=== PATIENT | male | born 1930 | race Caucasian/White ===

== ENCOUNTER → 2016-10-01 | Outpatient (CLI) | payer OTHER, MEDICARE ==
[~2016-10-01] MED LIST: ACET-1311 PO; AMLO-110 PO; APR50 PO; ASPI81TA28 PO; ATOR-54 PO; FLNIN NAE; FLUT1INH7 INH; FURO-85 PO; IPRA1AER2 INH; ISOS-11 PO; LEVO112T2 PO; PLN5 PO; POTA10CA28 PO; VALS-10 PO; WARF5TAB7 PO; WARF5TAB90 PO; [UNRECOGNIZED DRUG - CODE] PO
--- NOTE | 2016-10-01 12:49 | DIAGNOSTIC IMAGING REPORT ---
LEFT FOOT 3 VIEWS HISTORY: M79.672 Left foot painM10.9 Acute [id number] COMPARISON: None. FINDINGS: There is no fracture or dislocation. Soft tissues are unremarkable. Mild to moderate arthritic change throughout the left foot. The Lisfranc joint is intact. No soft tissue calcifications. No erosions identified. Mild soft tissue swelling within the ankle and foot. Large plantar heel spur. 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 No acute fractures. No erosions identified. Mild soft tissue swelling within the ankle and foot. Electronically signed by: Domenic Renee M.D. 10/01/2016 12:48 PM Dictated Date/Time: 10/01/2016 12:43 PM
== END | disposition home or self-care (01) ==
LOC: C.LABBC 12:19
PROVIDERS: ATTEND Internal Medicine
DX: M10.9 Gout, unspecified (principal); M19.072 Primary osteoarthritis, left ankle and foot

== ENCOUNTER → 2016-10-19 | Outpatient (CLI) | payer OTHER, MEDICARE | END | disposition home or self-care (01) | LOC: C.LABBFT 12:30 | PROVIDERS: ATTEND Internal Medicine | DX: E03.9 Hypothyroidism, unspecified (principal) ==

== ENCOUNTER → 2016-11-04 | Outpatient (CLI) | payer OTHER, MEDICARE ==
[2016-11-04 14:05] LABS: URINE APPEARANCE CLEAR (CLEAR); URINE BILIRUBIN NEG (NEG); URINE COLOR YELLOW; URINE EPITHELIAL CELL AUTO 0-5 /lpf (0-5); URINE NITRITE NEG (NEG); UROBILINOGEN NEG (NEG)
[2016-11-04 14:10] LABS: MANUAL MICROSCOPIC REQUIRED? NO; REVIEW REQ? NO
== END | disposition home or self-care (01) ==
LOC: C.LABBC 11:38
PROVIDERS: ATTEND Internal Medicine
DX: R32 Unspecified urinary incontinence (principal); I08.0 Rheumatic disorders of both mitral and aortic valves; Z79.01 Long term (current) use of anticoagulants

== ENCOUNTER → 2017-03-10 | Outpatient (CLI) | payer OTHER, MEDICARE ==
[2017-03-10 17:35] LABS: HEMATOCRIT 41.3 % (42-52); MEAN CELL VOLUME 91.4 fL (80-100); MEAN CORPUSCULAR HGB CONC 33.9 g/dl (32-36); MEAN PLATELET VOLUME 10.5 fL (7.4-10.4); PLATELET COUNT 284 K/uL (130-400); RED BLOOD COUNT 4.52 M/uL (4.7-6.1); WHITE BLOOD COUNT 8.28 K/uL (4.8-10.8)
[2017-03-10 17:46] LABS: ALT/SGPT 21 U/L (12-78); AST/SGOT 19 U/L (15-37); BLOOD UREA NITROGEN 18 mg/dl (7-18); BUN/CREATININE RATIO 11.7 (10-20); CALCIUM 8.7 mg/dl (8.5-10.1); CARBON DIOXIDE 27 mmol/L (21-32); CHLORIDE 105 mmol/L (98-107); GLUCOSE 139 mg/dl (70-99); POTASSIUM 3.2 mmol/L (3.5-5.1); SODIUM 140 mmol/L (136-145)
== END | disposition home or self-care (01) ==
LOC: C.LABBFT 12:41
PROVIDERS: ATTEND Internal Medicine Cardiovascular Disease
DX: I10 Essential (primary) hypertension (principal); I25.10 Atherosclerotic heart disease of native coronary artery without angina pectoris; I50.32 Chronic diastolic (congestive) heart failure; I71.2 Thoracic aortic aneurysm, without rupture; I48.2 Chronic atrial fibrillation; Z79.01 Long term (current) use of anticoagulants; I35.0 Nonrheumatic aortic (valve) stenosis; I08.0 Rheumatic disorders of both mitral and aortic valves; Z51.81 Encounter for therapeutic drug level monitoring

== ENCOUNTER → 2017-03-15 | Outpatient (CLI) | payer OTHER, MEDICARE ==
--- NOTE | 2017-04-02 12:13 | CODING QUERY NO DIAGNOSIS ---
TREATMENT RENDERED WITHOUT A DIAGNOSIS To promote full compliance with coding requirements relating to patient care, physician participation is requested in all cases of mobile home servicer uncertainty. Please assist us with providing a diagnosis/symptom for the test(s) below: A diagnosis/symptom was not documented on your Order. A valid diagnosis/symptom is required to bill all insurances. Please remember that we are unable to code a diagnosis of rule out, probable, possible, questionable, or suspected. Tests that require a diagnosis: * SHAVE BIOPSY LEFT EAR DIAGNOSIS: Provider Signature: Date: Thank you Teresa Crescent [facility] Information Management Once completed, please kindly fax back to [phone] For questions please call [phone]
== END | disposition home or self-care (01) ==
LOC: C.LABSPEC 16:17
PROVIDERS: ATTEND Dermatology
DX: Z01.89 Encounter for other specified special examinations (principal)

== ENCOUNTER → 2017-03-24 | Outpatient (CLI) | payer OTHER, MEDICARE ==
[2017-03-24 17:49] LABS: BLOOD UREA NITROGEN 19 mg/dl (7-18); BUN/CREATININE RATIO 14.6 (10-20); CALCIUM 8.5 mg/dl (8.5-10.1); CARBON DIOXIDE 29 mmol/L (21-32); CHLORIDE 105 mmol/L (98-107); GLUCOSE 118 mg/dl (70-99); POTASSIUM 3.4 mmol/L (3.5-5.1); SODIUM 139 mmol/L (136-145)
== END | disposition home or self-care (01) ==
LOC: C.LABBFT 17:36
PROVIDERS: ATTEND Physician Assistant
DX: R63.5 Abnormal weight gain (principal); I08.0 Rheumatic disorders of both mitral and aortic valves; Z79.01 Long term (current) use of anticoagulants; Z51.81 Encounter for therapeutic drug level monitoring

== ENCOUNTER 2017-04-01 22:36 | Inpatient (IN) | payer OTHER, MEDICARE ==
[~2017-04-01] VITALS: Ht 165.1 cm; Wt 86.3 kg
[~2017-04-01 22:36] MED LIST changes: -AMLO-110 PO; -FURO-85 PO; -POTA10CA28 PO
[2017-04-01] MEDS ORDERED: FURO-85 PO (23:40)
[2017-04-01] MEDS ORDERED: AMLO-110 PO (23:42)
[2017-04-01 23:43] LABS: BASO % 0.6 %; BASO ABS # 0.05 K/uL (0-0.2); COMPLETE YES; EOS % 2.2 %; HEMATOCRIT 38.5 % (42-52); IG% 0.1 %; LYMPH % 14.8 %; LYMPH ABS # 1.27 K/uL (1.2-3.4); MEAN CELL VOLUME 92.3 fL (80-100); MEAN CORPUSCULAR HEMOGLOBIN 30.9 pg (25-34); MEAN CORPUSCULAR HGB CONC 33.5 g/dl (32-36); MEAN PLATELET VOLUME 9.7 fL (7.4-10.4); MONO % 9.2 %; NEUT % 73.1 %; PLATELET COUNT 298 K/uL (130-400); RED BLOOD COUNT 4.17 M/uL (4.7-6.1); WHITE BLOOD COUNT 8.58 K/uL (4.8-10.8)
[2017-04-01] MEDS ORDERED: POTA10CA28 PO (23:43)
[2017-04-01] MEDS ORDERED: IPRA1AER2 INH (23:44)
[2017-04-01 23:53] LABS: POINT OF CARE TROPONIN I 0.1 ng/ml (0-0.045)
[2017-04-02] VITALS (11 sets, daily range): BP systolic 99–174; BP diastolic 60–83; PULSE 55–87; TEMP 36.5–36.7; O2SAT 92–99; Ht 165.1 cm; Wt 86.3 kg
[2017-04-02 00:08] LABS: BUN/CREATININE RATIO 16.2 (10-20); CALCIUM 8.6 mg/dl (8.5-10.1); CREATININE 1.4 mg/dl (0.60-1.40); POTASSIUM 3.5 mmol/L (3.5-5.1)
[2017-04-02 00:10] LABS: ALB/GLOB RATIO 0.8 (0.9-2)
[2017-04-02] MEDS ORDERED: ASPIRIN 324 MG CHEW PO STA (00:11)
--- NOTE | 2017-04-02 00:39 | EMERGENCY ROOM VISIT NOTE ---
History Report prepared by Hayde: Wicho Meraz Under the Supervision of: Dr. Caden Howard D.O. First contact with patient: 22:55 Chief Complaint: SHORTNESS OF BREATH Stated Complaint: SOB AFTER WALKING SHORT DISTANCE Nursing Triage Summary: Family reports increase in SOB today. Pt was walking a short distance and needed to rest. Pt denies symptoms. hx alzheimers. History of Present Illness The patient is a 86 year old male who presents to the Emergency Room with complaints of an episode of shortness of breath occurring today. He has a history of Alzheimer's. The patient currently denies any respiratory problems. Per daughter, the patient appeared to become short of breath with walking a very short distance today. She states that the patient does not normally have to stop and rest with walking. She notes that the patient was recently placed on temporary additional medication for fluid overload last week after he was found to have gained 11 pounds in a little over a week. The patient's daughter states that the patient has been eating less than normal. Source of History: patient, family (daughter) Onset: Today Symptom Intensity: currently none Quality: other (shortness of breath) Timing: other (episode) Modifying Factors (Worsening): other (walking) Review of Systems See HPI for pertinent positives and negatives. A total of ten systems were reviewed and were otherwise negative. Past Medical & Surgical Medical Problems: (1) Aortic aneurysm (2) Arthritis (3) Asthma (4) Benign hypertension (5) CABG x3 (6) CHF (congestive heart failure) (7) COPD exacerbation (8) Coronary artery disease (9) Hyponatremia (10) Kidney disease (11) Kidney stone Family History FHx: heart disease Hypertension Kidney disease Kidney stones Social History Smoking Status: Never Smoker Alcohol Use: none Drug Use: none Marital Status: Housing Status: lives with significant other Occupation Status: retired Current/Historical Medications Scheduled Amlodipine (Norvasc), 5 MG PO DAILY Aspirin (Aspirin Ec), 81 MG PO DAILY Atorvastatin (Lipitor), 20 MG PO HS Donepezil Hydrochloride (Donepezil Hcl), 10 MG PO DAILY Fluticasone Furoate-Vilanterol (Breo Ellipta 200-25 Mcg/INH), INH DAILY Fluticasone Propionate (Fluticasone Propionate), 1 SPRAY KASSANDRA BID Furosemide (Lasix), 20 MG PO DAILY Hydralazine HCl (Hydralazine HCl), 75 MG PO TID Ipratropium-Albuterol (Combivent Respimat), 2 PUFFS INH QID Isosorbide Mononitrate (Isosorbide Mononitrate ER), 30 MG PO DAILY Levothyroxine Sodium (Synthroid), 112 MCG PO DAILY Potassium Chloride (Micro-K Ext Rel), 20 MEQ PO DAILY Valsartan/Hctz (Diovan Hct 320MG/12.5MG), 1 TAB PO DAILY Warfarin Sod (Jantoven), 5 MG PO daily except wednesday Warfarin Sodium (Coumadin), 2.5 MG PO fridays Scheduled PRN Acetaminophen (Tylenol), 487.5 MG PO Q 6-8 HRS PRN for PRN Allergies Coded Allergies: Iodinated Diagnostic Agents (Verified Allergy, Intermediate, Swelling, ) Physical Exam Vital Signs Date Time Temp Pulse Resp B/P (MAP) Pulse Ox O2 Delivery O2 Flow Rate FiO2 04/02/17 00:33 55 22 192/97 96 Room Air 04/01/17 23:37 62 20 183/86 94 Room Air 04/01/17 23:29 64 04/01/17 23:29 97 Room Air 04/01/17 22:52 94 Room Air 04/01/17 22:47 36.5 71 18 228/83 94 Room Air Physical Exam GENERAL: Awake, alert, well-appearing, in no distress HENT: Normocephalic, atraumatic. Oropharynx unremarkable. EYES: Normal conjunctiva. Sclera non-icteric. NECK: Supple. No nuchal rigidity. FROM. No JVD. RESPIRATORY: Clear to auscultation. CARDIAC: Regular rate, normal rhythm. Extremities warm and well perfused. Pulses equal. ABDOMEN: Soft, non-distended. No tenderness to palpation. No rebound or guarding. No masses. RECTAL: Deferred. MUSCULOSKELETAL: Chest examination reveals no tenderness. The back is symmetrical on inspection without obvious abnormality. There is no CVA tenderness to palpation. No joint edema. LOWER EXTREMITIES: Calves are equal size bilaterally and non-tender. No edema. No discoloration. NEURO: Normal sensorium. No sensory or motor deficits noted. SKIN: No rash or jaundice noted. Medical Decision & Procedures ER Provider Diagnostic Interpretation: One View Chest X-ray interpreted by me: Cardiomegaly. Sternal wires. No obvious infiltrate. Laboratory Results 04/01/17 23:30 Red Blood Count 4.17, Mean Corpuscular Volume 92.3, Mean Corpuscular Hemoglobin 30.9, Mean Corpuscular Hemoglobin Concent 33.5, Mean Platelet Volume 9.7, Neutrophils (%) (Auto) 73.1, Lymphocytes (%) (Auto) 14.8, Monocytes (%) (Auto) 9.2, Eosinophils (%) (Auto) 2.2, Basophils (%) (Auto) 0.6, Neutrophils # (Auto) 6.27, Lymphocytes # (Auto) 1.27, Monocytes # (Auto) 0.79, Eosinophils # (Auto) 0.19, Basophils # (Auto) 0.05 04/01/17 23:30 Test 04/01/17 23:30 04/01/17 23:34 White Blood Count 8.58 K/uL (4.8-10.8) Red Blood Count 4.17 M/uL (4.7-6.1) Hemoglobin 12.9 g/dL (14.0-18.0) Hematocrit 38.5 % (42-52) Mean Corpuscular Volume 92.3 fL (80-100) Mean Corpuscular Hemoglobin 30.9 pg (25-34) Mean Corpuscular Hemoglobin Concent 33.5 g/dl (32-36) Platelet Count 298 K/uL (130-400) Mean Platelet Volume 9.7 fL (7.4-10.4) Neutrophils (%) (Auto) 73.1 % Lymphocytes (%) (Auto) 14.8 % Monocytes (%) (Auto) 9.2 % Eosinophils (%) (Auto) 2.2 % Basophils (%) (Auto) 0.6 % Neutrophils # (Auto) 6.27 K/uL (1.4-6.5) Lymphocytes # (Auto) 1.27 K/uL (1.2-3.4) Monocytes # (Auto) 0.79 K/uL (0.11-0.59) Eosinophils # (Auto) 0.19 K/uL (0-0.5) Basophils # (Auto) 0.05 K/uL (0-0.2) RDW Standard Deviation 46.8 fL (36.4-46.3) RDW Coefficient of Variation 14.0 % (11.5-14.5) Immature Granulocyte % (Auto) 0.1 % Immature Granulocyte # (Auto) 0.01 K/uL (0.00-0.02) Anion Gap 4.0 mmol/L (3-11) Est Creatinine Clear Calc Drug Dose 41.2 ml/min Estimated GFR () 52.7 Estimated GFR (Non- 45.5 BUN/Creatinine Ratio 16.2 (10-20) Calcium Level 8.6 mg/dl (8.5-10.1) Total Bilirubin 0.3 mg/dl (0.2-1) Aspartate Amino Transf (AST/SGOT) 18 U/L (15-37) Alanine Aminotransferase (ALT/SGPT) 20 U/L (12-78) Alkaline Phosphatase 68 U/L (45-117) Total Protein 7.2 gm/dl (6.4-8.2) Albumin 3.3 gm/dl (3.4-5.0) Globulin 3.9 gm/dl (2.5-4.0) Albumin/Globulin Ratio 0.8 (0.9-2) Bedside Troponin I 0.100 ng/ml (0-0.045) MH-Ykf-Y-Type Natriuretic Peptide 1604 pg/ml (0-1800) Laboratory results reviewed by me Medications Administered Medications (Trade) Dose Ordered Sig/Stevie Route Start Time Stop Time Status Last Admin Dose Admin Aspirin (Aspirin Chew) 324 mg NOW STAT PO 04/02/17 00:11 04/02/17 00:12 DC 04/02/17 00:19 324 MG ECG Indication: SOB/dyspnea Rate (beats per minute): 66 Rhythm: atrial fibrillation Findings: other (Non-specific intraventricular block. LAD. ) ED Course 2302: The patient was evaluated in room A3. A complete history and physical exam was performed. 0011: Ordered Aspirin 324 mg PO. 0020: Upon reexamination, the patient was resting. I discussed the test results and treatment plan with him. The patient will be evaluated for further management. Medical Decision Differential diagnosis: Etiologies such as infections, reactive airway disease, pneumonia, pneumothorax , COPD, CHF, cardiac ischemia, pulmonary embolism, musculoskeletal, gastrointestinal, as well as others were entertained. Resting in no distress patient had a positive troponin potentially this is an anginal equivalent. The case was discussed with the hospitalist for admission patient was given aspirin in the emergency department. Consults Time Called: 14 Consulting Physician: Dr. Mccarty -[facility] [place] Returned Call: 0020 Discussed the patient's case. The patient will be evaluated for further treatment and disposition. Impression Primary Impression: SOB (shortness of breath) Additional Impression: Elevated troponin Scribe Attestation The scribe's documentation has been prepared under my direction and personally reviewed by me in its entirety. I confirm that the note above accurately reflects all work, treatment, procedures, and medical decision making performed by me. Departure Information Dispostion Being Evaluated By Hospitalist Referrals No Doctor, Assigned (PCP) Patient Instructions [facility] Problem Qualifiers
[2017-04-02] MEDS ORDERED: HEPARIN IV LOW DOSE NO BOLUS SCH (00:49)
[2017-04-02 01:00] LABS: INR 1.5 (0.9-1.1); PARTIAL THROMBOPLASTIN RATIO 1.3; PROTHROMBIN TIME (PATIENT) 16.1 SECONDS (9.0-12.0)
[2017-04-02] MEDS ORDERED: NITROGLYCERIN 0.4 MG SL PER TAB CHARGE SL PRN (01:30)
[2017-04-02] MEDS ORDERED: ONDANSETRON INJ 2 MG/ML 2 ML VIAL IV PRN (01:30)
[2017-04-02] MEDS ORDERED: ACETAMINOPHEN 325 MG TAB PO PRN (01:30)
[2017-04-02] MEDS ORDERED: HEPARIN 25000 UNIT/500 ML D5W ONE (01:33)
[2017-04-02] MEDS ORDERED: FUROSEMIDE INJ 20 MG in SYRINGE 0 ML IV ONE (01:45)
[2017-04-02] MEDS ORDERED: FUROSEMIDE 40 MG/4 ML VIAL ONE (01:58)
[2017-04-02] MEDS ORDERED: ALBUT/IPRATROP 3MG/0.5MG NEB 3 ML VIAL ONE (01:58)
[2017-04-02] MEDS ORDERED: HEPARIN 25000 UNIT/ D5W 500 ML (PHARMACY PREPARED) IV PRN ×2 (02:45)
--- NOTE | 2017-04-02 04:49 | History and Physical ---
History & Physical Date & Time of Service: Apr 02, 2017 at 03:24 Chief Complaint: Nstemi Primary Care Physician: Arsh Brewer M.D. History of Present Illness Source: patient, family ( and daughter), clinic records, hospital records Mr. Blanco is an 86 year old male with coronary artery disease s/p CABG x3 (1997) , T2DM, HTN, permanent atrial fibrillation, diastolic CHF and CKD who presents to the ER with acute onset shortness of breath after walking 5 yards around 5: 00pm. This lasted for approximately 30 minutes. Helped with rest. He denies any chest pain however he is very stoic, likely has vascular dementia, not forthcoming with his medical illnesses/symptoms and non compliant with medication. At present the patient denies any issues problems and states that he is here just because his made him. The patient denies he is short of breath however he is using his accessory muscles and is audibly wheezing while in bed. Aug 2015 Echo LVEF 50-55%. Mild to moderate aortic stenosis. Mild mitral regurgitation. No wall motion abnormalities. Past Medical/Surgical History Medical Problems: (1) Aortic aneurysm Status: Chronic (2) Arthritis Status: Chronic (3) Asthma Status: Chronic (4) Benign hypertension Status: Chronic (5) CABG x3 Status: Resolved (6) CHF (congestive heart failure) Status: Chronic (7) Coronary artery disease Status: Chronic (8) Kidney disease Status: Chronic (9) Kidney stone Status: Resolved Family History FHx: heart disease Hypertension Kidney disease Kidney stones Social History Smoking Status: Never Smoker Smokeless Tobacco Use: No Alcohol Use: none Drug Use: none Marital Status: Housing status: lives with family Occupational Status: retired Immunizations History of Influenza Vaccine: Yes Influenza Vaccine Date: Jul 20, 2012 History of Tetanus Vaccine?: Unknown History of Pneumococcal: No History of Hepatitis B Vaccine: No Multi-Drug Resistant Organisms History of MDRO: No Allergies Coded Allergies: Iodinated Diagnostic Agents (Verified Allergy, Intermediate, Swelling, ) Home Medications Scheduled Amlodipine (Norvasc), 5 MG PO DAILY Aspirin (Aspirin Ec), 81 MG PO DAILY Atorvastatin (Lipitor), 20 MG PO HS Donepezil Hydrochloride (Donepezil Hcl), 10 MG PO DAILY Fluticasone Furoate-Vilanterol (Breo Ellipta 200-25 Mcg/INH), INH DAILY Fluticasone Propionate (Fluticasone Propionate), 1 SPRAY KASSANDRA BID Furosemide (Lasix), 20 MG PO DAILY Hydralazine HCl (Hydralazine HCl), 75 MG PO TID Ipratropium-Albuterol (Combivent Respimat), 2 PUFFS INH QID Isosorbide Mononitrate (Isosorbide Mononitrate ER), 30 MG PO DAILY Levothyroxine Sodium (Synthroid), 112 MCG PO DAILY Potassium Chloride (Micro-K Ext Rel), 20 MEQ PO DAILY Valsartan/Hctz (Diovan Hct 320MG/12.5MG), 1 TAB PO DAILY Warfarin Sod (Jantoven), 5 MG PO daily except wednesday Warfarin Sodium (Coumadin), 2.5 MG PO fridays Scheduled PRN Acetaminophen (Tylenol), 487.5 MG PO Q 6-8 HRS PRN for PRN Review of Systems Constitutional: No fever, No chills Eyes: No worsening of vision ENT: + hearing loss (chronic) Respiratory: + shortness of breath, + dyspnea on exertion, No cough, No dyspnea at rest (patient denies) Cardiovascular: No chest pain Abdomen: No pain, No nausea, No vomiting, No diarrhea, No constipation, No GI bleeding Musculoskeletal: No joint pain, No muscle pain Genitourinary - Male: No hematuria, No dysuria, No urinary frequency, No urinary urgency Hematologic / Lymphatic: No abnormal bleeding/bruising Integumentary: No rash, No itch Physical Exam Vital Signs Date Time Temp Pulse Resp B/P (MAP) Pulse Ox O2 Delivery O2 Flow Rate FiO2 04/02/17 02:57 67 24 176/80 97 04/02/17 02:51 56 04/02/17 01:50 58 28 165/79 95 Room Air 04/02/17 01:40 63 20 208/99 95 Room Air 04/02/17 00:33 55 22 192/97 96 Room Air 04/01/17 23:37 62 20 183/86 94 Room Air 04/01/17 23:29 64 04/01/17 23:29 97 Room Air 04/01/17 22:52 94 Room Air 04/01/17 22:47 36.5 71 18 228/83 94 Room Air General Appearance: WD/WN, + mild distress (wheezing and short of breath in bed at rest) Head: normocephalic, atraumatic Eyes: normal inspection, PERRL, EOMI Neck: supple, + JVD Respiratory/Chest: + respiratory distress (mild), + accessory muscle use (mild) , + crackles (bibasal fine crackles), + wheezing (expiratory wheeze throughout) Cardiovascular: + systolic murmur (loudest in ), + irregularly irregular Abdomen/GI: normal bowel sounds, non tender, soft, + distended (patient reports normal for him) Back: no CVA tenderness Extremities/Musculoskelatal: no calf tenderness, normal capillary refill, + pedal edema (trace bilaterally) 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, no motor/sensory deficits, alert, oriented x 3 Skin: normal color, warm/dry, no rash Diagnostics Laboratory Results Results Past 24 Hours Test 04/01/17 23:30 04/01/17 23:34 Range/Units White Blood Count 8.58 4.8-10.8 K/uL Red Blood Count 4.17 4.7-6.1 M/uL Hemoglobin 12.9 14.0-18.0 g/dL Hematocrit 38.5 42-52 % Mean Corpuscular Volume 92.3 80-100 fL Mean Corpuscular Hemoglobin 30.9 25-34 pg Mean Corpuscular Hemoglobin Concent 33.5 32-36 g/dl Platelet Count 298 130-400 K/uL Mean Platelet Volume 9.7 7.4-10.4 fL Neutrophils (%) (Auto) 73.1 % Lymphocytes (%) (Auto) 14.8 % Monocytes (%) (Auto) 9.2 % Eosinophils (%) (Auto) 2.2 % Basophils (%) (Auto) 0.6 % Neutrophils # (Auto) 6.27 1.4-6.5 K/uL Lymphocytes # (Auto) 1.27 1.2-3.4 K/uL Monocytes # (Auto) 0.79 0.11-0.59 K/uL Eosinophils # (Auto) 0.19 0-0.5 K/uL Basophils # (Auto) 0.05 0-0.2 K/uL RDW Standard Deviation 46.8 36.4-46.3 fL RDW Coefficient of Variation 14.0 11.5-14.5 % Immature Granulocyte % (Auto) 0.1 % Immature Granulocyte # (Auto) 0.01 0.00-0.02 K/uL Prothrombin Time 16.1 9.0-12.0 SECONDS Prothromb Time International Ratio 1.5 0.9-1.1 Activated Partial Thromboplast Time 33.8 21.0-31.0 SECONDS Partial Thromboplastin Ratio 1.3 Sodium Level 140 136-145 mmol/L Potassium Level 3.5 3.5-5.1 mmol/L Chloride Level 105 98-107 mmol/L Carbon Dioxide Level 31 21-32 mmol/L Anion Gap 4.0 3-11 mmol/L Blood Urea Nitrogen 23 7-18 mg/dl Creatinine 1.40 0.60-1.40 mg/dl Est Creatinine Clear Calc Drug Dose 41.2 ml/min Estimated GFR () 52.7 Estimated GFR (Non- 45.5 BUN/Creatinine Ratio 16.2 10-20 Random Glucose 160 70-99 mg/dl Calcium Level 8.6 8.5-10.1 mg/dl Total Bilirubin 0.3 0.2-1 mg/dl Aspartate Amino Transf (AST/SGOT) 18 15-37 U/L Alanine Aminotransferase (ALT/SGPT) 20 12-78 U/L Alkaline Phosphatase 68 45-117 U/L Total Protein 7.2 6.4-8.2 gm/dl Albumin 3.3 3.4-5.0 gm/dl Globulin 3.9 2.5-4.0 gm/dl Albumin/Globulin Ratio 0.8 0.9-2 Bedside Troponin I 0.100 0-0.045 ng/ml WG-Bby-U-Type Natriuretic Peptide 1604 0-1800 pg/ml Diagnostic Radiology SINGLE VIEW CHEST CLINICAL HISTORY: Dyspnea. FINDINGS: An AP, portable, upright chest radiograph is compared to study dated 04/22/2016. The examination is degraded by portable technique, apical positioning, and patient rotation. The patient is status post midline sternotomy. The heart is enlarged and there is atherosclerotic calcification of the thoracic aorta. The pulmonary vasculature is noncongested. Enlargement of the main pulmonary arteries suggests pulmonary artery hypertension. The lungs and pleural spaces are clear. No pneumothorax is seen. The bony thorax is grossly intact. IMPRESSION: Cardiomegaly with no acute cardiopulmonary abnormality. Electronically signed by: Hermes Fabian M.D. 04/02/2017 7:15 AM Dictated Date/Time: 04/02/2017 7:14 AM EKG Atrial fibrillation. 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 Start heparin low dose and hold warfarin in case cardiac cath is required. - Continue ASA + Plavix - not on BB secondary to Hx of bradycardia while on BB - Continue valsartan - continue atorvastatin - trend troponin - Consult cardiology Aortic stenosis and mitral regurgitation - systolic murmur on examination - declined previous intervention Atrial fibrillation - rate controlled (no rate control meds) - anticoagulated with warfarin - check PTINR and PTT as will hold warfarin until cardiology consult and place on IV heparin as above. HTN - likely due to medication non compliance therefore will not increase his medications at this time - continue valsartan/HCZT + amlodipine, give amlodipine dose now Shortness of breath with wheezing - trial of duoneb to see if this helps his wheezing - continue outpatient inhalers Attending Addendum: I have physically seen and examined this patient, have supervised the medical residents activities, and agree with the H&P as noted above with the following exceptions: NONE The patient is awake, well-developed and adequately nourished, alert and oriented 3, normocephalic and atraumatic, looks fatigued, lying in bed and in mild distress. HEENT--PERRL, EOMI, mucous membranes and oropharynx normal. Neck--supple, + JVD. No bruits. thyroid normal, trachea midline, no adenopathy. Heart--irregularly irregular. Systolic murmur. No rubs or gallops. Lungs-- coarse breath sounds and wheezes throughout, mild respiratory distress and accessory muscle use. Abdomen--normal bowel sounds and soft, nontender. Mildly tympanitic. No hernias or masses, no organomegaly. Extremities--no cyanosis, clubbing. 1+ bilateral pretibial/pedal pitting Edema. There are good distal pulses b/l. Dermatologic--normal skin turgor, normal color, warm and dry, no abnormal lymph nodes, no rash. Neurologic--cranial nerves II through XII grossly intact. Rheumatologic--normal range of motion, nontender, muscles and joints. Psychiatric--normal affect. Assessment and Plan: 1. CAD/hypertension/atrial fibrillation/aortic stenosis/mitral regurgitation/ NSTEMI with elevated troponin--The patient will be admitted to telemetry for serial cardiac enzymes, cardiac rhythm monitoring and a 2-D echocardiogram with Dopplers. Start heparin low dose per protocol. Hold warfarin. Continue aspirin and Plavix. Continue valsartan, HCTZ and amlodipine. History of bradycardia while on beta blockers. Continue atorvastatin. Consult cardiology. Level of Care Telemetry Advanced Directives Existing Advance Directive: Yes Existing Living Will: Yes Existing Power of Terrazzo Supervisor: Yes Resuscitation Status DO NOT RESUSCITATE (as per patient wishes) VTE Prophylaxis VTE Risk Assessment Done? Y/N: Yes Risk Level: Moderate Given or contraindicated: Other Anticoagulation Additional Copies To Arsh Brewer M.D. Resident Tracking Resident Involvement: Resident Care Provided Care Provided: Adult Hospital Medicine
[2017-04-02] MEDS: LEVOTHYROXINE 112 MCG TAB PO SCH (05:50)
[2017-04-02] MEDS ORDERED: PNEUMOCOCCAL POLYSACCHARIDES 25 MCG/0.5 ML VIAL/SYR IM. ONE (06:00)
[2017-04-02] MEDS ORDERED: PNEUMOCOCCAL ADMINISTRATION CHARGE ONE (06:00)
[2017-04-02] MEDS: ALBUT/IPRATROP 3MG/0.5MG NEB 3 ML VIAL INH SCH ×3 (07:09→19:05)
--- NOTE | 2017-04-02 07:16 | DIAGNOSTIC IMAGING REPORT ---
SINGLE VIEW CHEST CLINICAL HISTORY: Dyspnea. FINDINGS: An AP, portable, upright chest radiograph is compared to study dated 04/22/2016. The examination is degraded by portable technique, apical positioning, and patient rotation. The patient is status post midline sternotomy. The heart is enlarged and there is atherosclerotic calcification of the thoracic aorta. The pulmonary vasculature is noncongested. Enlargement of the main pulmonary arteries suggests pulmonary artery hypertension. The lungs and pleural spaces are clear. No pneumothorax is seen. The bony thorax is grossly intact. IMPRESSION: Cardiomegaly with no acute cardiopulmonary abnormality. Electronically signed by: Hermes Fabian M.D. 04/02/2017 7:15 AM Dictated Date/Time: 04/02/2017 7:14 AM
[2017-04-02 08:05] LABS: PARTIAL THROMBOPLASTIN RATIO 1.8
[2017-04-02 08:44] LABS: BUN/CREATININE RATIO 15.7 (10-20); CALCIUM 8.3 mg/dl (8.5-10.1); CREATININE 1.2 mg/dl (0.60-1.40); POTASSIUM 2.9 mmol/L (3.5-5.1)
[2017-04-02] MEDS: FLUTICASONE PROPIONATE NA SPR 16 GM BTL NAE SCH ×2 (08:46→21:01)
[2017-04-02] MEDS: IPRATROPIUM BROMIDE/ALBUTEROL respimat INH INH SCH ×4 (08:48→21:04)
[2017-04-02] MEDS: ISOSORBIDE MONONITRATE 30 MG TABCR PO SCH (08:49)
[2017-04-02] MEDS: AMLODIPINE BESYLATE 5 MG TAB PO SCH (08:49)
[2017-04-02] MEDS: VALSARTAN 80 MG TAB PO SCH (08:50)
[2017-04-02] MEDS: FUROSEMIDE 20 MG TAB PO SCH (08:50)
[2017-04-02] MEDS: ASPIRIN 81 MG ECTAB PO SCH (08:51)
[2017-04-02] MEDS: DONEPEZIL HCL 10 MG TAB PO SCH (08:51)
[2017-04-02] MEDS: HYDROCHLOROTHIAZIDE 25 MG TAB PO SCH (08:55)
[2017-04-02 08:59] LABS: ALB/GLOB RATIO 0.8 (0.9-2); CHOLESTEROL/HDL RATIO 4.2
[2017-04-02] MEDS ORDERED: VALSARTAN/HCTZ 320/12.5 MG TAB PO SCH (09:00)
[2017-04-02] MEDS ORDERED: POTASSIUM CHLORIDE 10 MEQ TABCR PO SCH (09:00)
[2017-04-02] MEDS ORDERED: HEPARIN IV BOLUS 3,000 UNIT in SYRINGE 0 ML IV SCH (09:00)
[2017-04-02 09:28] LABS: MEAN CELL VOLUME 91.5 fL (80-100); MEAN CORPUSCULAR HEMOGLOBIN 31.7 pg (25-34); MEAN CORPUSCULAR HGB CONC 34.6 g/dl (32-36); PLATELET COUNT 312 K/uL (130-400); RED BLOOD COUNT 4.26 M/uL (4.7-6.1); WHITE BLOOD COUNT 8.48 K/uL (4.8-10.8)
--- NOTE | 2017-04-02 10:47 | CARDIOLOGY CONSULTATION ---
DATE OF CONSULTATION: 04/02/2017 REFERRING PHYSICIAN: Joshua Broussard MD CONSULTING PHYSICIAN: Alen Beverly Jr, MD PRIMARY PHYSICIAN: Arsh Brewer MD ATTENDING PHYSICIAN: Alexandro Mccarty MD PRIMARY ARTS EDUCATION TEACHER: Lopez Macdonald MD HISTORY OF PRESENT ILLNESS: The patient is an 86-year-old white male with a history of coronary artery disease (status post CABG x3 in 1997), aortic stenosis, chronic atrial fibrillation, chronic diastolic heart failure, chronic kidney disease, dementia, type 2 diabetes mellitus, hypertension, dyslipidemia, and reactive airway disease. He also has a history of aortic root and ascending aortic dilatation. The patient and his family have previously refused any further workup, evaluation, or treatment of his aortic valvular or aortic disease. His last cardiac imaging study apparently was in 2014. This is 08/09/2015. The echo revealed LV ejection fraction of 50%-55%, mild to moderate aortic stenosis, mild mitral regurgitation, borderline left ventricular hypertrophy. The calculated aortic valve area at that time was 1.1 square cm. The mean gradient across the aortic valve at that time was 14 mmHg. The dimensionless aortic valve index calculated based on velocities reported on the echo was 0.29. The patient was recently seen by Dr. Macdonald as an outpatient on March 25. At that time, his stated that sometimes her appear to be "huffing and puffing." This was with exertion or bending over. At other times, he can walk prolonged distance such as the length of the mall without any obvious dyspnea. He had been noted on March 22 to have 2+ lower extremity pitting edema on a followup with Dr. Brewer. His furosemide dose was increased to 40 mg for three days. His usual dose is 20 mg daily. When he was seen in followup by Dr. Macdonald on March 25, it was reported that he had 1+ pretibial edema. The patient's had stated that her gained approximately 11 pounds in the few weeks prior to the March 25 visit. Despite his weight gain, she reported that his appetite has been decreased. She reports that he has decreased oral intake. She stated this to me today. The patient has difficulty in swallowing solids. It is easier for him to swallow soft foods. There is questionable compliance with medications. The patient's daughter, who is in attendance with him today (as well as his ), states that frequently, there are pills on the floor and in his clothing. The patient is also not compliant with a low sodium diet. He and his frequently eat at local restaurants. Yesterday afternoon, the patient and his had a meal at [employer]. They then drove to a local [employer]. The patient's reports that after he walked approximately 15 feet, he had diaphoresis over his upper lip. He appeared weak. He appeared dyspneic. Because of these symptoms, he came to [facility] for evaluation. In the Emergency Department, he had no complaints of dyspnea. It was reported that his lung exam was clear. His chest x-ray revealed no evidence of heart failure or infiltrate. Troponin I was obtained and was 0.1. Because of the troponin I in his symptoms, he was admitted to the telemetry unit. The patient and his family deny that he has had any further episodes of any dyspnea since admission. No chest pains. No orthopnea or PND. No complaint of palpitations, lightheadedness, or syncope. He is hungry this morning. He wishes to eat breakfast. The patient's daughter states that her father frequently has dyspnea with varying amounts of activity. He also has dyspnea if he bends over. His daughter states he frequently wheezes. He is not compliant with using his inhalers. He has been evaluated by Dr. Darrell Villalpando. He is followed by Dr. Villalpando as an outpatient. There is no complaint of lightheadedness or syncope. PAST MEDICAL HISTORY: 1. Coronary artery disease. History of myocardial infarction according to the daughter. Status post 3-vessel CABG surgery in 1997. 2. Hypertension. 3. Dyslipidemia. 4. Diabetes mellitus. 5. Aortic stenosis. 6. Thoracic aortic aneurysm. 7. Chronic diastolic heart failure. 8. Hypothyroidism. 9. History of hyponatremia. 10. Chronic atrial fibrillation. History of bradycardia with the atrial fibrillation. In the past, he has been noted to have heart rates in the 30s. 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 At that time, his AV johnson blocking agents were discontinued. Thereafter, his heart rate improved. However, he continues with a relatively low ventricular response to his atrial fibrillation. On his office visit of March 25, his heart rate was reported to be 56 beats per minute. 11. Obstructive lung disease. Pulmonary function test in 2015 with moderate obstructive ventilatory defect. No significant response to bronchodilator. Significant hyperinflation and air trapping. 12. Mitral regurgitation. 13. Dementia. 14. Chronic kidney disease, stage III. 15. History of aspiration pneumonia. PAST SURGICAL HISTORY: 1. Status post CABG surgery. 2. Status post inguinal hernia repair. 3. Status post oral surgery. SOCIAL HISTORY: The patient is and lives with his . He has never smoked cigarettes. He did have significant exposure to secondhand smoke at his work place. He also had industrial exposure to small particulates in the air. He does not drink alcohol. FAMILY HISTORY: No family history of premature coronary artery disease. History of Alzheimer's disease in his father. History of hypertension in his mother. Both his parents at age 89. ALLERGIES AND ADVERSE DRUG REACTIONS: IODINATED CONTRAST. CURRENT MEDICATIONS: Atorvastatin 20 mg at bedtime, amlodipine 5 mg daily, aspirin 81 mg daily, Aricept 10 mg daily, Flonase 1 spray b.i.d., furosemide 20 mg daily, hydralazine 75 mg t.i.d., Combivent 1 puff q.i.d., isosorbide mononitrate 30 mg daily, potassium 20 mEq daily, valsartan 320 mg daily, HCTZ 12.5 mg daily, DuoNeb 3 mL q.i.d., levothyroxine 112 mcg daily, and intravenous heparin by weight based protocol. As an outpatient, the patient was on warfarin 5 mg daily except 2.5 mg 1 day of the week. REVIEW OF SYSTEMS: Review of systems obtained from the patient's , his daughter, and the patient. The daughter states that the patient's answers to questions are unreliable secondary to his dementia. She states that he usually responds no to inquiry about any type of symptom. 1. Frequent wheezing. The daughter states that in the hospital, the nebulizer helped greatly. The patient is not compliant with his handheld inhaler. 2. No bleeding complaints. 3. Dementia. Severe short term memory loss. 4. No reported urinary complaints. 5. No symptoms of bleeding. 6. No GI complaints other than decreased appetite and difficulty in swallowing solids. 7. No report of any focal motor weakness. PHYSICAL EXAMINATION: VITAL SIGNS: Intake and output reported thus far 44/650. His recent vital signs with oral temperature of 36.5, pulse 60, blood pressure 170/82, and pulse oximetry 99% with supplemental nasal cannula oxygen. On room air 92%. GENERAL APPEARANCE: Shows him to be in no distress. HEAD: Normal. EYES: Pupils equal and round. Anicteric. Conjunctivae normal. NECK: Jugular venous pressure appears to be approximately 7-8 cm. Carotids 2/2 bilaterally. Delayed upstroke. Faint transmitted murmur in the left carotid. LUNGS: Normal respiratory effort. Clear. No rales or wheezes. HEART: PMI not palpable. No lifts or heaves. Irregularly irregular. Diminished aortic valvular closing sound. A 2/6 systolic murmur at the second intercostal space. A 2/6 harsh systolic murmur at the left lower sternal border. No diastolic murmur. No S3 or rub heard. ABDOMEN: Soft. Nontender. No palpable masses or organomegaly. EXTREMITIES: Trace pretibial edema bilaterally. No cyanosis or clubbing. NEUROLOGIC: The patient is oriented to his name and birthdate. Severe short term memory loss apparent. He can move all extremities well. He is awake and alert. PSYCHIATRIC: Affect is normal. DATA: Chest x-ray reviewed by me. No heart failure. Electrocardiograms are performed late last evening and early this morning and reviewed by me. Atrial fibrillation, nonspecific intraventricular conduction delay, severe left axis deviation, and left anterior fascicular block. Monitor history reviewed, atrial fibrillation with slow ventricular response. Episodes of what appears to be ventricular escaped rhythm. PTT today 45.9. INR yesterday 1.5. Metabolic profile today with sodium 140, potassium 3.5, chloride 105, carbon dioxide 31, BUN 23, creatinine 1.40, and random glucose 160. NT-proB natriuretic peptide performed lately last evening 1604. Top normal is 1800. CBC with WBC 8.58, hemoglobin 12.9, hematocrit 38.5, and platelet count 298. ASSESSMENT: 1. Reported episode of dyspnea after exertion. This was of brief duration. By his 's account,this lasted a few minutes. No evidence of congestive heart failure in the Emergency Department or on chest x-ray. He continues without any evidence of pulmonary vascular congestion. His NT-proB natriuretic peptide was within normal range. He does have a history of chronic diastolic heart failure. However, no evidence of pulmonary vascular congestion on exam or imaging of this admission. His blood pressure in the Emergency Department was documented to be 228/83. This could certainly contribute to dyspnea. With his aortic stenosis, his intracardiac pressure would be even higher. This could certainly cause an episode of dyspnea. Suspect that his aortic stenosis is now worse than it was 2 years ago. Dyspnea on exertion is frequent symptom with aortic stenosis. Of note is that the patient is not compliant with a low sodium diet or his ears medications. 2. Longstanding history of coronary artery disease. No anginal type pains. One point of care troponin I was mildly elevated. I do not suspect an acute coronary process. This is a mild troponin elevation in the setting of aortic stenosis and hypertension. This would be consistent with demand ischemia. His electrocardiogram shows no acute changes. 3. Severe dementia. Severe short term memory loss. This was evident during my exam of the patient. He did not recall things that he said 10-20 seconds earlier. 4. Severe hypertension in the Emergency Department. Systolic pressure improved since admission. Noncompliance with his medications and a low sodium diet. History of ventricular escaped rhythms. This has been evident during this admission. 5. No reports of lightheadedness or syncope. 6. Chronic kidney disease. 7. No bleeding complaints on anticoagulation therapy. INR on admission was subtherapeutic. 8. History of at least moderate obstructive airway disease. This could also been contributory to his episode of dyspnea. The patient's family states that he has frequent episodes of significant wheezing. His daughter states that he is unable to properly use his inhalers. She inquires whether he could have a nebulizer. He responds well to nebulizer treatment in the hospital by her account. PLAN AND RECOMMENDATIONS: 1. Continue usual antihypertensive medications. Assess blood pressure while hospitalized. 2. Continue usual diuretics. 3. Restart warfarin. INR goal was 2-3. 4. Determine whether the patient is eligible for home nebulizer. 5. The patient's family declines any further evaluations for his valvular or coronary artery disease. Specifically, no cardiac catheterization. Even if they desired one, there is no indication at this time for him to undergo an urgent cardiac catheterization procedure. He would clearly be at increased risk for cardiac catheterization procedure secondary to his diabetes mellitus and chronic kidney disease. Increased risk of contrast induced nephropathy. Even if he had underlying coronary artery disease, he likely has severe aortic stenosis at this time. He declines treatment for this. 6. Check echocardiogram today to further assess valvular function and ventricular function. MTDD
[2017-04-02] MEDS ORDERED: POTASSIUM CHLORIDE 10 MEQ TABCR PO ONE (12:00)
[2017-04-02 16:04] LABS: PARTIAL THROMBOPLASTIN RATIO 2.5
[2017-04-02 16:10] LABS: BUN/CREATININE RATIO 13.4 (10-20); CALCIUM 8.6 mg/dl (8.5-10.1); CREATININE 1.4 mg/dl (0.60-1.40); POTASSIUM 3.4 mmol/L (3.5-5.1)
--- NOTE | 2017-04-02 16:36 | Progress Note ---
Subjective Date of Service: Apr 02, 2017. Subjective Pt evaluation today including: conversation w/ patient, conversation w/ family ( and daughter), physical exam, lab review, review of studies, conversation w/ reporting process consultant, review of inpatient medication list Pain: no chest pain PO Intake: adequate Voiding: no voiding problems patient feeling well, denies chest pain or dyspnea on exertion, ambulated around the nurses unit appreciate recommendations from Dr. Beverly, symptoms likely due to aortic stenosis updated family at the bedside, discussed how well he was walking they say that he will down play symptoms to go home, has dementia issues with not taking medications, finds pills all over the house that he was supposed to take discussed keeping him here, take it day to day Problem List Medical Problems: (1) Elevated troponin Status: Acute (2) Fall Status: Acute (3) Hypertension Status: Acute (4) Multiple abrasions Status: Acute (5) Nasal contusion Status: Acute (6) SOB (shortness of breath) Status: Acute Review of Systems Neurologic: + memory loss All Other Systems: Reviewed and Negative Medications Current Inpatient Medications Medications (Trade) Dose Ordered Sig/Stevie Route Start Time Stop Time Status Last Admin Dose Admin Nitroglycerin (Nitrostat Tab) 0.4 mg Q5M PRN SL 04/02/17 01:30 05/02/17 01:29 Acetaminophen (Tylenol Tab) 650 mg Q4H PRN PO 04/02/17 01:30 05/02/17 01:29 Ondansetron HCl (Zofran Inj) 4 mg Q6H PRN IV 04/02/17 01:30 05/02/17 01:29 Amlodipine Besylate (Norvasc Tab) 5 mg DAILY PO 04/02/17 09:00 05/02/17 08:59 04/02/17 08:49 5 MG Aspirin (Ecotrin Tab) 81 mg DAILY PO 04/02/17 09:00 05/02/17 08:59 04/02/17 08:51 81 MG Atorvastatin Calcium (Lipitor Tab) 20 mg HS PO 04/02/17 21:00 05/02/17 20:59 Donepezil HCl (Aricept Tab) 10 mg DAILY PO 04/02/17 09:00 05/02/17 08:59 04/02/17 08:51 10 MG Fluticasone Propionate (Flonase Nasal [place]) 1 sprays BID KASSANDRA 04/02/17 09:00 05/02/17 08:59 04/02/17 08:46 1 SPRAYS Furosemide (Lasix Tab) 20 mg DAILY PO 04/02/17 09:00 05/02/17 08:59 04/02/17 08:50 20 MG Hydralazine HCl (Apresoline Tab) 75 mg TID PO 04/02/17 09:00 05/02/17 08:59 04/02/17 12:35 75 MG Albuterol/ Ipratropium (Combivent Respimat Inh) 1 puffs QID INH 04/02/17 09:00 05/02/17 08:59 04/02/17 12:35 1 PUFFS Isosorbide Mononitrate (Imdur Ext Rel Tab) 30 mg DAILY PO 04/02/17 09:00 05/02/17 08:59 04/02/17 08:49 30 MG Levothyroxine Sodium (Synthroid Tab) 112 mcg DAILYBB PO 04/02/17 06:00 05/02/17 06:59 04/02/17 05:50 112 MCG Albuterol/ Ipratropium (Duoneb) 3 ml QIDR INH 04/02/17 08:00 05/02/17 07:59 04/02/17 11:08 3 ML Valsartan (Diovan Tab) 320 mg QAM PO 04/02/17 09:00 05/02/17 08:59 04/02/17 08:50 320 MG Hydrochlorothiazide (Hydrochlorothiazide Tab) 12.5 mg QAM PO 04/02/17 09:00 05/02/17 08:59 04/02/17 08:55 12.5 MG Heparin Sodium (Porcine) 61476 unit/Dextrose 500 ml @ 20 mls/hr Q24H PRN IV 04/02/17 02:45 05/02/17 02:44 Potassium Chloride (Klor-Con M10) 20 meq TID PO 04/02/17 16:00 05/02/17 15:59 Objective Vital Signs Date Time Temp Pulse Resp B/P (MAP) Pulse Ox O2 Delivery O2 Flow Rate FiO2 04/02/17 15:08 36.5 71 20 141/76 (97) 98 Room Air 04/02/17 12:00 Room Air 04/02/17 11:21 36.5 68 20 157/76 (103) 96 Room Air 04/02/17 11:08 70 18 93 Room Air 04/02/17 08:00 Room Air 04/02/17 07:18 36.5 60 20 170/82 (111) 99 Nasal Cannula 04/02/17 07:10 68 18 92 Room Air 04/02/17 04:00 Room Air 04/02/17 03:35 96 Room Air 04/02/17 03:27 36.5 87 20 174/83 04/02/17 02:57 67 24 176/80 97 04/02/17 02:51 56 04/02/17 01:50 58 28 165/79 95 Room Air 04/02/17 01:40 63 20 208/99 95 Room Air 04/02/17 00:33 55 22 192/97 96 Room Air 04/01/17 23:37 62 20 183/86 94 Room Air 04/01/17 23:29 64 04/01/17 23:29 97 Room Air 04/01/17 22:52 94 Room Air 04/01/17 22:47 36.5 71 18 228/83 94 Room Air Physical Exam General Appearance: WD/WN, no apparent distress Eyes: normal inspection, EOMI, sclerae normal Respiratory/Chest: chest non-tender, lungs clear, normal breath sounds, no respiratory distress, no accessory muscle use Cardiovascular: regular rate, rhythm, no edema, no gallop, no JVD, + systolic murmur Abdomen: normal bowel sounds, non tender, soft, no organomegaly Extremities: normal range of motion, non-tender, normal inspection, no pedal edema, no calf tenderness, pelvis stable Neurologic/Psychiatric: leather finisher II-XII nml as tested, no motor/sensory deficits, alert, normal mood/affect, + disoriented, + pertinent finding (short term memory loss) Skin: normal color, warm/dry, no rash Laboratory Results Last 24 Hours Test 04/01/17 23:30 04/01/17 23:34 04/02/17 07:31 04/02/17 15:25 White Blood Count 8.58 K/uL 8.48 K/uL Red Blood Count 4.17 M/uL 4.26 M/uL Hemoglobin 12.9 g/dL 13.5 g/dL Hematocrit 38.5 % 39.0 % Mean Corpuscular Volume 92.3 fL 91.5 fL Mean Corpuscular Hemoglobin 30.9 pg 31.7 pg Mean Corpuscular Hemoglobin Concent 33.5 g/dl 34.6 g/dl Platelet Count 298 K/uL 312 K/uL Mean Platelet Volume 9.7 fL 10.0 fL Neutrophils (%) (Auto) 73.1 % Lymphocytes (%) (Auto) 14.8 % Monocytes (%) (Auto) 9.2 % Eosinophils (%) (Auto) 2.2 % Basophils (%) (Auto) 0.6 % Neutrophils # (Auto) 6.27 K/uL Lymphocytes # (Auto) 1.27 K/uL Monocytes # (Auto) 0.79 K/uL Eosinophils # (Auto) 0.19 K/uL Basophils # (Auto) 0.05 K/uL RDW Standard Deviation 46.8 fL 46.4 fL RDW Coefficient of Variation 14.0 % 14.0 % Immature Granulocyte % (Auto) 0.1 % Immature Granulocyte # (Auto) 0.01 K/uL Prothrombin Time 16.1 SECONDS Prothromb Time International Ratio 1.5 Activated Partial Thromboplast Time 33.8 SECONDS 45.9 SECONDS 65.4 SECONDS Partial Thromboplastin Ratio 1.3 1.8 2.5 Sodium Level 140 mmol/L 139 mmol/L 136 mmol/L Potassium Level 3.5 mmol/L 2.9 mmol/L 3.4 mmol/L Chloride Level 105 mmol/L 102 mmol/L 100 mmol/L Carbon Dioxide Level 31 mmol/L 28 mmol/L 26 mmol/L Anion Gap 4.0 mmol/L 9.0 mmol/L 10.0 mmol/L Blood Urea Nitrogen 23 mg/dl 19 mg/dl 19 mg/dl Creatinine 1.40 mg/dl 1.20 mg/dl 1.40 mg/dl Est Creatinine Clear Calc Drug Dose 41.2 ml/min 46.0 ml/min 39.4 ml/min Estimated GFR () 52.7 63.5 52.7 Estimated GFR (Non- 45.5 54.8 45.5 BUN/Creatinine Ratio 16.2 15.7 13.4 Random Glucose 160 mg/dl 126 mg/dl 161 mg/dl Calcium Level 8.6 mg/dl 8.3 mg/dl 8.6 mg/dl Total Bilirubin 0.3 mg/dl 0.4 mg/dl Aspartate Amino Transf (AST/SGOT) 18 U/L 17 U/L Alanine Aminotransferase (ALT/SGPT) 20 U/L 19 U/L Alkaline Phosphatase 68 U/L 63 U/L Total Protein 7.2 gm/dl 7.5 gm/dl Albumin 3.3 gm/dl 3.4 gm/dl Globulin 3.9 gm/dl 4.1 gm/dl Albumin/Globulin Ratio 0.8 0.8 Bedside Troponin I 0.100 ng/ml YA-Lik-T-Type Natriuretic Peptide 1604 pg/ml Troponin I 0.078 ng/ml Triglycerides Level 70 mg/dl Cholesterol Level 143 mg/dl HDL Cholesterol 34 mg/dl LDL Cholesterol, Calculated 95 mg/dl VLDL Cholesterol, Calculated 14 mg/dl Cholesterol/HDL Ratio 4.2 Assessment and Plan 86 yo male with h/o CABG, aortic stenosis, afib and CKD stage III presented with dyspnea on exertion, chest pressure - CHRISTENSEN and chest pressure: likely a result of severe aortic stenosis, typical symptoms associated with progression of this disease checking echocardiogram for up to date idea on severity of family not interested in any intervention for the valve - Elevated troponin: minimal, trending down, no evidence of NSTEMI per cardiology - CAD with h/o CABG: continue antiplatelets - Chronic afib: rates controlled, INR sub therapeutic due to non-compliance on Coumadin heparin gtt for now, resume Coumadin today - CKD stage III: Cr stable, at baseline PT/OT evaluations keep on tele overnight, f/u results of repeat echo, determine safe plan for discharge per family
[2017-04-02] MEDS ORDERED: WARFARIN SOD 5 MG TAB PO ONE (16:45)
[2017-04-02] MEDS: POTASSIUM CHLORIDE 10 MEQ TABCR PO SCH ×2 (17:54→21:29)
--- NOTE | 2017-04-02 17:57 | ECHOCARDIOGRAM REPORT ---
*NOTICE TO RECEIVING DEMOCRAT AGENCY This information is strictly Confidential and protected under [place] law. [place] law prohibits you from making any further disclosure of this information unless further disclosure is expressly permitted by the written consent of the person to whom it pertains or is authorized by law. A general authorization for the release of medical or other information is not sufficient for this purpose. Hospital accepts no responsibility if the information is made available to any other person, INCLUDING THE PATIENT. Interpretation Summary * Name: OLIMPIA AVERY Study Date: 04/02/2017 03:50 PM BP: 170/82 mmHg * Patient Location: C.2T\S\S230\S\1 HR: 73 * : 1930 (M/d/yyyy) Gender: Male Height: 65 in * Age: 86 yrs Ethnicity: [place] Weight: 195 lb * Ordering Physician: Alen Beverly * Referring Physician: Self, Referred * Performed By: Leonor Zavala RCS * * Reason For Study: Valvular Heart Dz * BSA: 2.0 m2 * -- Conclusions -- * 1. Normal LV size, borderline concentric LVH. * 2. Normal LV systolic function. LVEF 50-55%. No regional wall motion abnormalities. * 3. Normal RV size, mild RV dysfunction. * 4. Moderate calcific (PV 3.06 m/s, MG 21 mmHg, SUZETTE 1.0) * 5. Mild mitral regurgitation. * 6. Mildly dilated ascending aorta (4.3 cm) * 7. Compared with prior study on 08/19/2015: severity has progressed slightly. Procedure Details * A complete two-dimensional transthoracic echocardiogram was performed (2D, M-mode, Doppler and color flow Doppler). Left Ventricle * The left ventricle is grossly normal size. * There is borderline concentric left ventricular hypertrophy. * Ejection Fraction = 50-55%. Right Ventricle * The right ventricle is grossly normal size. * The right ventricular systolic function is mildly reduced. Atria * Borderline left atrial enlargement. * Borderline right atrial enlargement. * No ASD detected; PFO is not assessed. Mitral Valve * There is mild mitral annular calcification. * Mitral stenosis is absent. * There is mild mitral regurgitation. Tricuspid Valve * There is no tricuspid stenosis. * There is trace tricuspid regurgitation. Aortic Valve * Thickened, calcified, restricted aortic valve * Moderate valvular aortic stenosis. * There is no significant aortic regurgitation. Pulmonic Valve * The pulmonary valve is inadequately visualized, but the Doppler data is adequate for interpretation. * Pulmonic stenosis is absent. * There is no significant pulmonary regurgitation. Great Vessels * Mild aortic root dilatation. Pericardium/Pleural * There is no pericardial effusion. MMode 2D Measurements and Calculations IVSd 1.1 cm IVSs 1.3 cm LVIDd 4.4 cm LVIDs 3.0 cm LVPWd 1.1 cm LVPWs 1.4 cm IVS/LVPW 0.98 FS 31.8 % EDV(Teich) 86.5 ml ESV(Teich) 34.5 ml EF(Teich) 60.1 % EDV(cubed) 83.7 ml ESV(cubed) 26.5 ml EF(cubed) 68.3 % % IVS thick 16.1 % % LVPW thick 25.9 % LV mass(C)d 172.4 grams LV mass(C)dI 88.1 grams/m\S\2 LV mass(C)s 132.8 grams LV mass(C)sI 67.8 grams/m\S\2 CO(Teich) 3.3 l/min CI(Teich) 1.7 l/min/m\S\2 SV(Teich) 52.0 ml SI(Teich) 26.6 ml/m\S\2 CO(cubed) 3.7 l/min CI(cubed) 1.9 l/min/m\S\2 SV(cubed) 57.1 ml SI(cubed) 29.2 ml/m\S\2 Ao root diam 4.1 cm Ao root area 13.1 cm\S\2 LA dimension 4.8 cm asc Aorta Diam 4.3 cm LA/Ao 1.2 LVOT diam 2.3 cm LVOT area 4.3 cm\S\2 LVAd ap4 39.7 cm\S\2 LVLd ap4 9.6 cm EDV(MOD-sp4) 133.0 ml LVAs ap4 20.5 cm\S\2 LVLs ap4 7.1 cm ESV(MOD-sp4) 50.0 ml EF(MOD-sp4) 62.4 % LVAd ap2 39.4 cm\S\2 LVLd ap2 9.1 cm EDV(MOD-sp2) 143.0 ml LVAs ap2 23.6 cm\S\2 LVLs ap2 8.0 cm ESV(MOD-sp2) 59.0 ml EF(MOD-sp2) 58.7 % CO(MOD-sp4) 5.3 l/min CI(MOD-sp4) 2.7 l/min/m\S\2 SV(MOD-sp4) 83.0 ml SI(MOD-sp4) 42.4 ml/m\S\2 CO(MOD-sp2) 5.4 l/min CI(MOD-sp2) 2.7 l/min/m\S\2 SV(MOD-sp2) 84.0 ml SI(MOD-sp2) 42.9 ml/m\S\2 Doppler Measurements and Calculations MV E max narinder 125.4 cm/sec MV A max narinder 33.1 cm/sec MV E/A 3.8 MV P1/2t max narinder 128.6 cm/sec MV P1/2t 75.5 msec MVA(P1/2t) 2.9 cm\S\2 MV dec slope 498.5 cm/sec\S\2 MV dec time 0.22 sec Ao V2 max 297.8 cm/sec Ao max PG 35.5 mmHg Ao max PG (full) 33.5 mmHg Ao V2 mean 207.4 cm/sec Ao mean PG 19.7 mmHg Ao mean PG (full) 18.6 mmHg Ao V2 VTI 62.8 cm SUZETTE(I,A) 1.0 cm\S\2 SUZETTE(I,D) 1.0 cm\S\2 SUZETTE(V,A) 1.0 cm\S\2 SUZETTE(V,D) 1.0 cm\S\2 LV V1 max PG 2.0 mmHg LV V1 mean PG 1.1 mmHg LV V1 max 71.6 cm/sec LV V1 mean 49.2 cm/sec LV V1 VTI 14.9 cm SV(Ao) 820.4 ml SI(Ao) 419.2 ml/m\S\2 SV(LVOT) 64.3 ml SI(LVOT) 32.9 ml/m\S\2 PA V2 max 112.0 cm/sec PA max PG 5.1 mmHg TR max narinder 272.8 cm/sec
[2017-04-02] MEDS ORDERED: ATORVASTATIN 20 MG TAB PO SCH (21:00)
[2017-04-03] VITALS (8 sets, daily range): BP systolic 98–173; BP diastolic 57–75; PULSE 57–75; TEMP 36.5–36.7; O2SAT 97–98
[2017-04-03] MEDS ORDERED: HEPARIN 25,000 UNIT/500ML D5W 500 ML IV PRN (02:15)
[2017-04-03] MEDS: LEVOTHYROXINE 112 MCG TAB PO SCH (06:03)
[2017-04-03 06:55] LABS: INR 1.8 (0.9-1.1); PARTIAL THROMBOPLASTIN RATIO 2.2; PROTHROMBIN TIME (PATIENT) 19.9 SECONDS (9.0-12.0)
[2017-04-03] MEDS: ALBUT/IPRATROP 3MG/0.5MG NEB 3 ML VIAL INH SCH ×3 (07:15→15:08)
[2017-04-03] MEDS: IPRATROPIUM BROMIDE/ALBUTEROL respimat INH INH SCH ×3 (08:08→17:00)
[2017-04-03] MEDS: HYDROCHLOROTHIAZIDE 25 MG TAB PO SCH (08:09)
[2017-04-03] MEDS: FLUTICASONE PROPIONATE NA SPR 16 GM BTL NAE SCH (08:09)
[2017-04-03] MEDS: ISOSORBIDE MONONITRATE 30 MG TABCR PO SCH (08:10)
[2017-04-03] MEDS: POTASSIUM CHLORIDE 10 MEQ TABCR PO SCH ×2 (08:10→13:35)
[2017-04-03] MEDS: AMLODIPINE BESYLATE 5 MG TAB PO SCH (08:11)
[2017-04-03] MEDS: ASPIRIN 81 MG ECTAB PO SCH (08:11)
[2017-04-03] MEDS: FUROSEMIDE 20 MG TAB PO SCH (08:12)
[2017-04-03] MEDS: VALSARTAN 80 MG TAB PO SCH (08:13)
[2017-04-03] MEDS: DONEPEZIL HCL 10 MG TAB PO SCH (08:14)
--- NOTE | 2017-04-03 13:02 | CARDIOLOGY PROGRESS NOTE ---
DATE: 04/03/2017 DATE: 04/03/2017 SUBJECTIVE: The patient was seen by me early this afternoon in his telemetry unit room. He states he is feeling very well. He and his report that he has had no dyspnea since admission. No chest pain. No palpitations, lightheadedness, or syncope. He voices no complaints. No GI, pulmonary, urinary complaints. No cerebrovascular complaints. ALLERGIES: IODINATED CONTRAST DYE. CURRENT MEDICATIONS: Warfarin 5 mg daily, atorvastatin 20 mg at bedtime, potassium 20 mEq t.i.d., amlodipine 5 mg daily, aspirin 81 mg daily, Aricept 10 mg daily, Flonase 1 spray b.i.d., furosemide 20 mg daily, hydralazine 75 mg t.i.d., Combivent 1 puff q.i.d., isosorbide mononitrate 30 mg daily, valsartan 320 mg daily, HCTZ 12.5 mg daily, DuoNeb 2 mL q.i.d., levothyroxine 112 mcg daily. The patient was on intravenous heparin by weight based protocol. Monitor history reveals atrial fibrillation, occasional premature ventricular beat versus aberrant conduction, overnight nonsustained episode of irregular ventricular nonsustained tachycardia versus atrial fibrillation with aberrant conduction and rapid ventricular response. PHYSICAL EXAMINATION: VITAL SIGNS: This morning with oral temperature 36.7, pulse 69, blood pressure 173/75, pulse oximetry room air 95%. NECK: No jugular venous distention. LUNGS: Normal respiratory effort. Clear. No rales or wheezes. HEART: Irregularly irregular. 2/6 systolic murmur second intercostal space. 2/6 harsher murmur left lower sternal border. No diastolic murmur, S3, or rub. ABDOMEN: Soft. Nontender. No palpable masses or organomegaly. No bruits. EXTREMITIES: No pretibial edema. No cyanosis or clubbing. NEUROLOGIC: Alert. PSYCHIATRIC: Affect is normal. LABORATORY DATA: Labs today with INR 1.8. PTT 56.5. Echocardiogram performed yesterday and reviewed by me shows LV ejection fraction 50-55%. Borderline LVH. Moderate calcified aortic stenosis. Calculated aortic valve area 1.0 square cm. Mean gradient across the aortic valve 21 mmHg. The dimensionless aortic valve index calculated to be 0.24. ASSESSMENT: 1. No complaints of dyspnea after hospitalization. 2. Mildly elevated troponin I during this admission. Suspect demand ischemia. 3. Based on the calculated aortic valve area and mean gradient across the aortic valve, the aortic stenosis is moderate. The dimensionless aortic valve index is consistent with borderline severe aortic stenosis. 4. History of reactive airway disease. No evidence of bronchospasm on exam today. 5. Systolic hypertension this morning. However, overnight his blood pressure was reported to be 98/67. 6. Chronic atrial fibrillation. Controlled ventricular response. 7. Episode of nonsustained ventricular tachycardia versus atrial fibrillation with aberrant conduction. He did have hypokalemia yesterday with potassium of 2.9 yesterday morning. After supplementation it daren to 3.4 yesterday afternoon. RECOMMENDATIONS: 1. Recheck potassium as well as check magnesium today. 2. Continue current medications. 3. Conservative medical management of his underlying heart disease. The patient and his family have declined any invasive evaluation or treatment of his heart disease. 4. Continue long-term anticoagulation therapy with warfarin. INR goal is 2-3. He is almost therapeutic at this time.
[2017-04-03 13:15] LABS: POTASSIUM 3.7 mmol/L (3.5-5.1)
[2017-04-03 13:21] LABS: MAGNESIUM 2.3 mg/dl (1.8-2.4)
--- NOTE | 2017-04-03 13:55 | Discharge Instructions ---
Discharge Instructions Date of Service Apr 03, 2017. Admission Reason for Admission: Chest pain, shortness of breath on exertion Discharge Discharge Diagnosis / Problem: Chest pain, dyspnea, due to aortic stenosis, coronary disease Discharge Goals Goal(s): Improve function, Improve disease control, Specific goals (home nursing to follow up for medication checks) Activity Recommendations Activity Limitations: resume your previous activity Exercise/Sports Limitations: as tolerated Shower/Bathe: no limitations . Instructions / Follow-Up Instructions / Follow-Up Medications: no changes In summary, there was no evidence of an acute heart attack on EKG or heart enzymes. The symptoms you are experiencing are most likely due to aortic stenosis coupled with your history of coronary disease. Recommendations from cardiology are to continue your current medications, stay active, if you develop chest pain or shortness of breath on exertion, get rest and it should resolve. Discussed home situation with case management and the need for some home nursing visits to make sure you are taking medications as prescribed. FOLLOW UP - please call Dr. Brewer's office for appointment this week for hospital follow up Current Hospital Diet Patient's current hospital diet: Low Sodium Diet (2gm Na), AHA Diet (Heart Healthy) Discharge Diet Recommended Diet: AHA Diet (Heart Healthy) Pending Studies Studies pending at discharge: no Laboratory Results Lipid Panel Test 04/02/17 07:31 Range/Units Triglycerides Level 70 0-150 mg/dl Cholesterol Level 143 0-200 mg/dl HDL Cholesterol 34 mg/dl Cholesterol/HDL Ratio 4.2 LDL Cholesterol, Calculated 95 mg/dl Medical Emergencies . Who to Call and When: Medical Emergencies: If at any time you feel your situation is an emergency, please call 911 immediately. . Non-Emergent Contact Non-Emergency issues call your: Primary Care Provider Call Non-Emergent contact if: your pain is not controlled, your pain is worsening, you have any medication questions . . "Provider Documentation" section prepared by Casey Ramírez. . VTE Core Measure Inpt VTE Proph given/why not?: Warfarin (Coumadin) [place] Drug Monitoring Program Search Results: no issues identified
[2017-04-03 14:32] LABS: INR 1.9 (0.9-1.1); PROTHROMBIN TIME (PATIENT) 21.3 SECONDS (9.0-12.0)
[2017-04-03] MEDS ORDERED: WARFARIN SOD 5 MG TAB PO SCH (16:00)
--- NOTE | 2017-04-04 08:07 | Discharge Summary ---
Discharge Summary Date of Service Apr 04, 2017. Discharge Summary Admission Date: Apr 02, 2017 at 02:43 Discharge Date: Apr 03, 2017 Discharge Disposition: Home with services Principal Diagnosis: Chest pain due to aortic stenosis Problems/Secondary Diagnoses: CKD stage III Chronic atrial fibrillation chronic coumadin use dementia Immunizations: Have You Had Influenza Vaccine: Yes Influenza Vaccine Date: Jul 20, 2012 History of Tetanus Vaccine?: Unknown History of Pneumococcal: No History of Hepatitis B Vaccine: No Procedures: none Consultations: Cardiology Medication Reconciliation Continued Medications: Acetaminophen (Tylenol) 325 Mg Tab 487.5 MG PO Q 6-8 HRS PRN for PRN, TAB Amlodipine (Norvasc) 5 Mg Tab 5 MG PO DAILY, TAB Aspirin (Aspirin Ec) 81 Mg Tab 81 MG PO DAILY Atorvastatin (Lipitor) 20 Mg Tab 20 MG PO HS, TAB Donepezil Hydrochloride (Donepezil Hcl) 10 Mg Tab 10 MG PO DAILY tTAKE WITH FOOD Fluticasone Furoate-Vilanterol (Breo Ellipta 200-25 Mcg/INH) 1 Inh Inh INH DAILY Fluticasone Propionate (Fluticasone Propionate) 120 Sprays/6000 Mcg Inha 1 SPRAY KASSANDRA BID Furosemide (Lasix) 20 Mg Tab 20 MG PO DAILY, TAB pt may take an additional dose for increase wt gain, edema, or sob Hydralazine HCl (Hydralazine HCl) 50 Mg Tab 75 MG PO TID Ipratropium-Albuterol (Combivent Respimat) 1 Aer Aer 2 PUFFS INH QID, INH Isosorbide Mononitrate (Isosorbide Mononitrate ER) 30 Mg Tabcr 30 MG PO DAILY Levothyroxine Sodium (Synthroid) 112 Mcg Tab 112 MCG PO DAILY, TAB Potassium Chloride (Micro-K Ext Rel) 10 Meq Capcr 20 MEQ PO DAILY, CAP to take when takes extra dose of lasix Valsartan/Hctz (Diovan Hct 320MG/12.5MG) 1 Tab Tab 1 TAB PO DAILY for 90 Days, #90 TAB 1 Refill Warfarin Sod (Jantoven) 5 Mg Tab 5 MG PO daily except wednesday, TAB Warfarin Sodium (Coumadin) 5 Mg Tab 2.5 MG PO fridays, TAB Discharge Exam Patient doing well on day of discharge. Eating well, breathing well, no chest pain. Ambulated several laps around the nurses station with no reported chest pain or dyspnea. Fixated on returning home to see his dog. Labs reviewed, K and mag normal. INR 1.9 but safe to return home with follow up INR testing. Home nursing requested for med checks, per family he does not always take his medications. Review of Systems: Constitutional: No fever, No chills, No sweats, No weight loss, No weakness , No fatigue, No problem reported Eyes: No worsening of vision, No eye pain, No redness, No discharge, No diplopia, No problem reported ENT: No hearing loss, No unusual epistaxis, No nasal symptoms, No sore throat, No tinnitus, No dental problems, No trouble swallowing, No problem reported Respiratory: No cough, No sputum, No wheezing, No shortness of breath, No dyspnea on exertion, No dyspnea at rest, No hemoptysis, No problem reported Cardiovascular: No chest pain, No orthopnea, No PND, No edema, No claudication, No palpitations, No problem reported Abdomen: No pain, No nausea, No vomiting, No diarrhea, No constipation, No GI bleeding, No problem reported Musculoskeletal: No joint pain, No muscle pain, No swelling, No calf pain, No problem reported Genitourinary - Male: No hematuria, No dysuria, No urinary frequency, No urinary urgency Neurologic: + memory loss, No paralysis, No weakness, No numbness/tingling, No vertigo, No balance problems, No problem reported Psychiatric: No depression symptoms, No anhedonism, No anxiety, No insomnia , No substance abuse, No problem reported Endocrine: No fatigue, No excessive thirst, No excessive urination, No problem reported Hematologic / Lymphatic: No abnormal bleeding/bruising, No clotting problems , No swollen lymph nodes, No night sweats, No problem reported Integumentary: No rash, No itch, No new/changing skin lesions, No color change, No bleeding, No problem reported Physical Exam: General Appearance: WD/WN, no apparent distress Eyes: normal inspection, EOMI, sclerae normal ENT: normal ENT inspection, hearing grossly normal, pharynx normal Neck: supple, no adenopathy, no JVD, trachea midline Respiratory/Chest: chest non-tender, lungs clear, normal breath sounds, no respiratory distress, no accessory muscle use Cardiovascular: regular rate, rhythm, no edema, no gallop, no JVD, normal peripheral pulses, + systolic murmur Abdomen / GI: normal bowel sounds, non tender, soft, no organomegaly Extremities: normal inspection, no calf tenderness, normal capillary refill , no pedal edema, normal range of motion, pelvis stable Neurologic/Psychiatric: gluing machine feeder II-XII nml as tested, no motor/sensory deficits , alert, normal mood/affect, normal reflexes, + pertinent finding (pleasantly confused, poor short term memory) Skin: normal color, warm/dry, no rash Lymphatic: no adenopathy Hospital Course 86 yo male with h/o CABG, aortic stenosis, afib and CKD stage III presented with dyspnea on exertion, chest pressure - CHRISTENSEN and chest pressure: likely a result of moderate aortic stenosis, typical symptoms associated with progression of this disease echocardiogram showed moderate to severe disease family not interested in any intervention for the valve, treat medically - Elevated troponin: minimal, trending down, no evidence of NSTEMI per cardiology elevated troponin likely demand ischemia in setting of aortic stenosis - CAD with h/o CABG: continue antiplatelets - Chronic afib: rates controlled, INR sub therapeutic due to non-compliance on Coumadin heparin gtt while admitted, INR up to 1.9 on discharge, will be therapeutic tomorrow d/c on 5mg daily, home nursing for medication checks - CKD stage III: Cr stable, at baseline PT/OT evaluations - cleared for d/c to home, ambulating with walker around the RN station Total Time Spent: Greater than 30 minutes This includes examination of the patient, discharge planning, medication reconciliation, and communication with other providers. Discharge Instructions Please refer to the electronic Patient Visit Report (Discharge Instructions) for additional information. Follow-Up Dr. Brewer in one week Additional Copies To Arsh Brewer M.D.
== END 2017-04-03 17:46 | disposition home health service (06) | DRG 307 ==
LOC: C.EDB 22:38 → C.2T 04-02 02:43 → ENRESERV 04-02 02:47
PROVIDERS: ADMIT Hospitalist; ATTEND Internal Medicine
DX: I08.0 Rheumatic disorders of both mitral and aortic valves (principal); I13.0 Hypertensive heart and chronic kidney disease with heart failure and stage 1 through stage 4 chronic kidney disease, or unspecified chronic kidney disease; I24.8 Other forms of acute ischemic heart disease; I48.2 Chronic atrial fibrillation; R79.1 Abnormal coagulation profile; Z91.14 Patient's other noncompliance with medication regimen; I25.10 Atherosclerotic heart disease of native coronary artery without angina pectoris; N18.3 Chronic kidney disease, stage 3 (moderate); F03.90 Unspecified dementia, unspecified severity, without behavioral disturbance, psychotic disturbance, mood disturbance, and anxiety; E78.5 Hyperlipidemia, unspecified; G30.9 Alzheimer's disease, unspecified; F02.80 Dementia in other diseases classified elsewhere, unspecified severity, without behavioral disturbance, psychotic disturbance, mood disturbance, and anxiety; J45.909 Unspecified asthma, uncomplicated; J44.9 Chronic obstructive pulmonary disease, unspecified; E11.9 Type 2 diabetes mellitus without complications; Z79.899 Other long term (current) drug therapy; Z79.01 Long term (current) use of anticoagulants; Z79.82 Long term (current) use of aspirin; Z66 Do not resuscitate; Z95.5 Presence of coronary angioplasty implant and graft; Z82.49 Family history of ischemic heart disease and other diseases of the circulatory system; Z84.1 Family history of disorders of kidney and ureter

== ENCOUNTER → 2017-04-27 | Outpatient (CLI) | payer OTHER, MEDICARE ==
[~2017-04-27] MED LIST changes: +AMLO-110 PO; +FURO-85 PO; -PLN5 PO; +POTA10CA28 PO
--- NOTE | 2017-04-27 12:12 | DIAGNOSTIC IMAGING REPORT ---
CHEST 2 VIEWS ROUTINE CLINICAL HISTORY: 86 years-old Male presenting with moderate aortic stenosis. TECHNIQUE: PA and lateral views of the chest were obtained. COMPARISON: 04/01/2017. FINDINGS: Median sternotomy wires and mediastinal surgical clips. Top normal size of the cardiac silhouette. Atherosclerosis of the aortic arch. Lungs and pleural spaces clear. Osseous structures normal. Upper abdomen normal. IMPRESSION: 1. No acute cardiopulmonary disease. Electronically signed by: Arsh Wolf M.D. 04/27/2017 12:11 PM Dictated Date/Time: 04/27/2017 12:10 PM
[2017-04-27 13:24] LABS: BASO % 0.2 %; BASO ABS # 0.02 K/uL (0-0.2); COMPLETE YES; EOS % 0.2 %; HEMATOCRIT 41.9 % (42-52); IG% 0.3 %; LYMPH ABS # 0.37 K/uL (1.2-3.4); MEAN CELL VOLUME 91.7 fL (80-100); MEAN CORPUSCULAR HEMOGLOBIN 31.7 pg (25-34); MEAN CORPUSCULAR HGB CONC 34.6 g/dl (32-36); MEAN PLATELET VOLUME 10.4 fL (7.4-10.4); MONO % 4.6 %; NEUT % 91.7 %; PLATELET COUNT 263 K/uL (130-400); RED BLOOD COUNT 4.57 M/uL (4.7-6.1)
[2017-04-27 13:27] LABS: URINE APPEARANCE CLEAR (CLEAR); URINE BILIRUBIN NEG (NEG); URINE COLOR YELLOW; URINE EPITHELIAL CELL AUTO 0-5 /lpf (0-5); URINE NITRITE NEG (NEG); URINE PH 5.5 (4.5-7.5); UROBILINOGEN NEG (NEG)
[2017-04-27 13:34] LABS: INR 2.1 (0.9-1.1); PROTHROMBIN TIME (PATIENT) 23.4 SECONDS (9.0-12.0)
[2017-04-27 13:38] LABS: MANUAL MICROSCOPIC REQUIRED? NO; REVIEW REQ? NO
[2017-04-27 14:05] LABS: LYME DISEASE AB IGG NEG (NEG); LYME DISEASE AB IGM NEG (NEG)
[2017-04-27 14:10] LABS: ALT/SGPT 22 U/L (12-78); AST/SGOT 19 U/L (15-37); BLOOD UREA NITROGEN 18 mg/dl (7-18); BUN/CREATININE RATIO 15.1 (10-20); CALCIUM 8.5 mg/dl (8.5-10.1); CARBON DIOXIDE 26 mmol/L (21-32); CHLORIDE 105 mmol/L (98-107); GLUCOSE 128 mg/dl (70-99); SODIUM 138 mmol/L (136-145)
[2017-04-27 14:20] LABS: ALB/GLOB RATIO 0.9 (0.9-2); ALKALINE PHOSPHATASE 75 U/L (45-117)
== END | disposition home or self-care (01) ==
LOC: C.RAD 11:32
PROVIDERS: ATTEND Internal Medicine
DX: I35.0 Nonrheumatic aortic (valve) stenosis (principal); R32 Unspecified urinary incontinence

== ENCOUNTER → 2017-05-04 | Outpatient (CLI) | payer OTHER, MEDICARE ==
[2017-05-04 17:50] LABS: INR 2.1 (0.9-1.1); PROTHROMBIN TIME (PATIENT) 23.4 SECONDS (9.0-12.0)
== END | disposition home or self-care (01) ==
LOC: C.LABBFT 13:45
PROVIDERS: ATTEND Internal Medicine Cardiovascular Disease
DX: I08.0 Rheumatic disorders of both mitral and aortic valves (principal); Z79.01 Long term (current) use of anticoagulants

== ENCOUNTER → 2017-05-11 | Outpatient (CLI) | payer OTHER, MEDICARE ==
[2017-05-11 18:19] LABS: BLOOD UREA NITROGEN 20 mg/dl (7-18); BUN/CREATININE RATIO 16.6 (10-20); CALCIUM 8.3 mg/dl (8.5-10.1); CARBON DIOXIDE 28 mmol/L (21-32); CHLORIDE 106 mmol/L (98-107); GLUCOSE 136 mg/dl (70-99); POTASSIUM 3.6 mmol/L (3.5-5.1); SODIUM 138 mmol/L (136-145)
== END | disposition home or self-care (01) ==
LOC: C.LABBFT 13:43
PROVIDERS: ATTEND Internal Medicine Cardiovascular Disease
DX: I50.32 Chronic diastolic (congestive) heart failure (principal)